=== PATIENT | male | born 1985 | race Caucasian/White ===

== ENCOUNTER → 2017-07-25 | Outpatient (CLI) | payer BC ==
--- NOTE | 2017-07-25 17:37 | DIAGNOSTIC IMAGING REPORT ---
ADDENDUM Addendum: The findings were discussed with Efren Veliz at 6:25 PM on July 25, 2017. Electronically signed by: Munir Aguirre M.D. 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 COMPARISON STUDY: None. TECHNIQUE: Utilizing a 1.5 Dena magnet and dedicated coil, multiplanar, multiecho imaging of the left tibia and fibula was performed without intravenous or intraarticular contrast. FINDINGS: Note is made of moderate marrow edema within the proximal metadiaphysis of the left tibia. There is adjacent periosteal edema. In addition, there is linear hypointense transverse signal abnormality within the left tibia at this level which reflects a stress fracture. No fibular stress fracture is identified. Extensive multifocal muscular edema is noted within the left lower leg, most pronounced within the medial head of the gastrocnemius. There is a small amount of fluid along the fascia. No intramuscular hematoma is identified. Alignment of the left knee and ankle is anatomic anatomic. IMPRESSION: 1. Nondisplaced transverse stress fracture of the proximal metadiaphysis of the left tibia with moderate associated marrow and periosteal edema. This reflects a grade 4b stress fracture. 2. Extensive multifocal muscular edema within the left lower leg, most pronounced within the medial head of the gastrocnemius. This suggests myositis/muscular injury due to overuse. This is nonspecific and could be correlated with clinical evidence for rhabdomyolysis and compartment syndrome. Electronically signed by: Munir Aguirre M.D. 07/25/2017 5:36 PM Dictated Date/Time: 07/25/2017 3:39 PM
== END | disposition home or self-care (01) ==
LOC: C.MRI 13:14
PROVIDERS: ATTEND Family Medicine
DX: M84.362A Stress fracture, left tibia, initial encounter for fracture (principal); X58.XXXA Exposure to other specified factors, initial encounter